=== PATIENT | female | born 1975 | race American Indian/Alaskan Native ===

== ENCOUNTER 2020-08-25 10:06 | Emergency (ER) | payer SELFPAY ==
[2020-08-25] MEDS ORDERED: ACETAMINOPHEN 325 MG TAB PO ONE (10:48)
[2020-08-25] MEDS ORDERED: IBUPROFEN 400 MG TAB PO ONE (10:48)
[2020-08-25] MEDS ORDERED: FAMOTIDINE 20 MG TAB PO ONE (10:48)
--- NOTE | 2020-08-25 10:49 | Emergency Department Report ---
ED Chest Pain HPI - General Chief Complaint: Chest Pain Stated Complaint: DIFFICULTY BREATHING/CHEST PAIN PUI?: No Time Seen by Provider: 08/25/20 10:36 Source: patient, EMS ( EMS documentation not available at time of chart dictation ), RN notes reviewed Mode of arrival: Stretcher Limitations: No Limitations - History of Present Illness Initial Comments: The patient was evaluated in the emergency department for symptoms described in the history of present illness. He/she was evaluated in the context of the global COVID-19 pandemic, which necessitated consideration that the patient might be at risk for infection with the virus that causes COVID-19. Institutional protocols and algorithms that pertain to the evaluation of patients at risk for COVID-19 are in a state of rapid change based on information released by regulatory bodies including the CDC and federal and state organizations. These policies and algorithms were followed during the patient's care in the emergency department. Please note that these policies, procedures and recommendations changed on a rapid basis. Chaperoned by MITCHELL RYAN during the history and physical examination. The patient is a 44-year-old female, who is right-hand dominant, with a reported history of hypothyroidism. Patient does not currently have a local primary care doctor. The patient presents to the ER today with a complaint of chest t ightness, and anxiety. Patient reports anxiety over the past week to 2 weeks. She has intermittent chest pressure and chest tightness, present for the past 7 to 10 days. The tightness is sometimes on the left chest, right chest, middle chest. Sometimes, the tightness moves to her arms. Sometimes it moves to her back. There is no vomiting. There is no diaphoresis. There is no exertional shortness of breath. Patient reports significant stressors, including a family member who recently , and nonspecific psychosocial issues with her daughter. Patient reports shortness of breath which is not exertional, when she "starts to feel anxious." Patient denies aspirin consumption, travel, surgery, oral contraceptive use, immobilization. She states that she is not and has not delivered or given in the past 6 weeks No recent cardiac or stratification. Apparently, her mother had a myocardial infarction in her 50s. Otherwise, there is no personal family history of DVT, pulmonary embolism, or ischemic heart disease. MD Complaint: chest pain -: Gradual, week(s) Onset: during rest Pain Location: substernal, left chest, right chest Pain Radiation: RUE, LUE, back Severity: mild Quality: aching Consistency: intermittent Improves With: rest Worsens With: other (Worsens with feeling anxious) Context: other (Psychosocial stressors) re: dyspnea, other (As per history of present illness) Other Symptoms: other (As per history of present illness) Aspirin use within the Past 7 Days: (0) No - Related Data On Oral Contraceptives: No Previous Rx's Medication Instructions Recorded Last Taken Type Acetaminophen [Non-Aspirin Extra 500 mg PO Q6HR PRN #30 tablet 08/25/20 Unknown Rx Strength] Aspirin [Aspirin BABY CHEW TAB] 81 mg PO QDAY #30 tab.chew 08/25/20 Unknown Rx Famotidine [Pepcid] 20 mg PO BID #60 tablet 08/25/20 Unknown Rx Ibuprofen [Motrin] 600 mg PO Q8H PRN #30 tablet 08/25/20 Unknown Rx Allergies Allergy/AdvReac Type Severity Reaction Status Date / Time codeine Allergy Hives Verified 08/25/20 10:32 Heart Score - HEART Score History: Slightly suspicious EKG: Non-specific Age: < 45 Risk factors: 1-2 risk factors Troponin: < normal limit HEART Score: 2 - Critical Actions Critical Actions: 0-3 pts:0.9-1.7%risk of adverse cardiac event.Candidate for discharge ED Review of Systems ROS: Stated complaint: DIFFICULTY BREATHING/CHEST PAIN Other details as noted in HPI Constitutional: other (Denies loss of taste and loss of smell). denies: fever Eyes: denies: eye discharge ENT: denies: congestion Respiratory: denies: cough Cardiovascular: chest pain Gastrointestinal: denies: abdominal pain, nausea, vomiting, diarrhea Genitourinary: denies: dysuria Musculoskeletal: myalgia. denies: back pain Neurological: denies: weakness Psychiatric: anxiety ED Past Medical Hx - Past Medical History Previous Medical History?: Yes Additional medical history: Graves - Surgical History Past Surgical History?: Yes Additional Surgical History: x 3 - Social History Smoking Status: Current Every Day Smoker Substance Use Type: None - Medications Home Medications: Home Medications Medication Instructions Recorded Confirmed Last Taken Type Acetaminophen [Non-Aspirin Extra 500 mg PO Q6HR PRN #30 tablet 08/25/20 Unknown Rx Strength] Aspirin [Aspirin BABY CHEW TAB] 81 mg PO QDAY #30 tab.chew 08/25/20 Unknown Rx Famotidine [Pepcid] 20 mg PO BID #60 tablet 08/25/20 Unknown Rx Ibuprofen [Motrin] 600 mg PO Q8H PRN #30 tablet 08/25/20 Unknown Rx ED Physical Exam - General Limitations: No Limitations General appearance: alert, in no apparent distress, obese - Head Head exam: Present: atraumatic, normocephalic - Eye Eye exam: Present: normal appearance, EOMI. Absent: nystagmus - ENT ENT exam: Present: normal exam, normal orophraynx, mucous membranes moist, nor mal external ear exam - Neck Neck exam: Present: normal inspection, full ROM. Absent: tenderness, meningismus - Respiratory Respiratory exam: Present: normal lung sounds bilaterally, chest wall tenderness, other (Chaperoned by MITCHELL RYAN). Absent: respiratory distress, wheezes, rales, rhonchi, stridor - Cardiovascular Cardiovascular Exam: Present: regular rate, normal rhythm, normal heart sounds. Absent: bradycardia, tachycardia, irregular rhythm, systolic murmur, diastolic murmur, rubs, gallop - GI/Abdominal GI/Abdominal exam: Present: soft. Absent: distended, tenderness, guarding, rebound, rigid, pulsatile mass - Extremities Exam Extremities exam: Present: normal inspection, full ROM, other (2+ pulses noted in the bilateral upper and lower extremities. There is no palpable cord. negative Homans sign. Muscular compartments are soft. The pelvis is stable.). Absent: pedal edema, calf tenderness - Back Exam Back exam: Present: normal inspection, full ROM. Absent: tenderness, CVA tenderness (R), paraspinal tenderness, vertebral tenderness - Neurological Exam Neurological exam: Present: alert, normal gait, other (No facial droop. Tongue midline. Extraocular movements intact bilaterally. Facial sensation intact to light touch in V1, V2, V3 distribution bilaterally. 5 and a 5 strength in 4 extremities. Sensation intact to light touch in 4 extremities.). Absent: motor sensory deficit - Psychiatric Psychiatric exam: Present: normal affect, normal mood - Skin Skin exam: Present: warm, dry, intact, normal color. Absent: rash ED Course Vital Signs 08/25/20 08/25/20 10:15 10:39 Temperature 98.4 F Pulse Rate 69 Respiratory 18 18 Rate Blood Pressure 144/90 O2 Sat by Pulse 100 100 Oximetry - Reevaluation(s) Reevaluation #1: 08/25/20 13:00 Patient states she feels improved. Objective laboratory testing unremarkable. Vital signs unchanged. Patient watching TV and playing on her cellular phone at this time. X-ray to my interpretation appears to be unremarkable. Patient and I discussed various techniques for anxiety management, and need for outpatient follow-up. KARISSA score - Karissa Score Age > 65: (0) No Aspirin use within the Past 7 Days: (0) No 3 or more CAD Risk Factors: (0) No 2 or more Angina events in past 24 hrs: (0) No Known CAD with more than 50% Stenosis: (0) No Elevated Cardiac Markers: (0) No ST Deviation Greater than 0.5mm: (0) No KARISSA Score: 0 ED Medical Decision Making - Lab Data Result diagrams: 08/25/20 11:12 08/25/20 11:12 Vital Signs 08/25/20 08/25/20 10:15 10:39 Temperature 98.4 F Pulse Rate 69 Respiratory 18 18 Rate Blood Pressure 144/90 O2 Sat by Pulse 100 100 Oximetry Lab Results 08/25/20 08/25/20 08/25/20 Range/Units 11:12 11:12 11:12 WBC 5.8 (4.5-11.0) K/mm3 RBC 4.59 (3.65-5.03) M/mm3 Hgb 12.3 (10.1-14.3) gm/dl Hct 37.7 (30.3-42.9) % MCV 82 (79-97) fl MCH 27 L (28-32) pg MCHC 33 (30-34) % RDW 15.0 (13.2-15.2) % Plt Count 311 (140-440) K/mm3 Troponin T < 0.010 (0.00-0.029) ng/mL HCG, Quant < 2 (0-4) mIU/mL Lab Results 08/25/20 08/25/20 08/25/20 Range/Units 11:12 11:12 11:12 WBC 5.8 (4.5-11.0) K/mm3 RBC 4.59 (3.65-5.03) M/mm3 Hgb 12.3 (10.1-14.3) gm/dl Hct 37.7 (30.3-42.9) % MCV 82 (79-97) fl MCH 27 L (28-32) pg MCHC 33 (30-34) % RDW 15.0 (13.2-15.2) % Plt Count 311 (140-440) K/mm3 Sodium 136 L (137-145) mmol/L Potassium 4.2 (3.6-5.0) mmol/L Chloride 103.9 (98-107) mmol/L Carbon Dioxide 25 (22-30) mmol/L Anion Gap 11 mmol/L BUN 6 L (7-17) mg/dL Creatinine 0.6 (0.6-1.2) mg/dL Estimated GFR > 60 ml/min BUN/Creatinine Ratio 10 % Glucose 90 (65-100) mg/dL Calcium 9.2 (8.4-10.2) mg/dL Magnesium 1.80 (1.7-2.3) mg/dL Total Creatine Kinase 44 (30-135) units/L Troponin T < 0.010 (0.00-0.029) ng/mL HCG, Quant (0-4) mIU/mL 08/25/20 Range/Units 11:12 WBC (4.5-11.0) K/mm3 RBC (3.65-5.03) M/mm3 Hgb (10.1-14.3) gm/dl Hct (30.3-42.9) % MCV (79-97) fl MCH (28-32) pg MCHC (30-34) % RDW (13.2-15.2) % Plt Count (140-440) K/mm3 Sodium (137-145) mmol/L Potassium (3.6-5.0) mmol/L Chloride (98-107) mmol/L Carbon Dioxide (22-30) mmol/L Anion Gap mmol/L BUN (7-17) mg/dL Creatinine (0.6-1.2) mg/dL Estimated GFR ml/min BUN/Creatinine Ratio % Glucose (65-100) mg/dL Calcium (8.4-10.2) mg/dL Magnesium (1.7-2.3) mg/dL Total Creatine Kinase (30-135) units/L Troponin T (0.00-0.029) ng/mL HCG, Quant < 2 (0-4) mIU/mL - EKG Data -: EKG Interpreted by Me EKG shows normal: sinus rhythm Rate: normal - EKG Data When compared to previous EKG there are: previous EKG unavailable 08/25/20 10:57 No prior EKG available for comparison. Sinus rhythm. 67 bpm. First-degree AV block, [place] interval 203 ms. Premature atrial complex. Not a STEMI. No prior for comparison - Radiology Data Radiology results: pending, image reviewed interpreted by me: 1 view x-ray of the chest, interpreted by myself, negative for acute findings. No obvious infiltrate, pneumothorax, pleural effusion. Cardiac silhouette unremarkable. - Medical Decision Making Differential diagnosis, including but not limited to: GERD, gastritis, hiatal hernia, pneumonia, coronary artery disease, costochondritis, anxiety, conversion reaction, history of thyroid derangement Assessment and plan: 44-year-old female, who is not currently tachycardic, tachypneic or hypoxic, who denies DVT and pulmonary embolism risk factors, who is low risk by Wells criteria for pulmonary embolism, PERC negative EKG unchanged unremarkable, troponin negative x 1, symptoms present for a few weeks, as per the [employer] clinical policy, acute myocardial infarction may be ruled out with 1 set of troponin/cardiac enzymes. Patient has equal pulses in the upper and lower extremities, no pulsatile abdominal mass, and an unremarkable x-ray of the chest, therefore, aortic disease is very unlikely. Patient at low risk for major adverse cardiac event as per heart score. Given reproducibility, history and physical, do not have a high suspicion for GERD, gastritis, hiatal hernia at this time. Pneumonia is unlikely given history, physical, and x-ray findings. I find coronary artery disease of significance to be unlikely. As per this institutions policy, procedure, protocol, patient's information is transmitted to [facility] heart cardiology, whereby patient should be contacted within the next 2 days to arrange close outpatient follow-up We will also check a TSH. However, patient has not been on thyroid medication for about a year, and she does not appear to be symptomatically hyper or hypothyroid. She will therefore need to follow-up with an outpatient primary care doctor or mate fishing vessel. Critical care attestation.: If time is entered above; I have spent that time in minutes in the direct care o f this critically ill patient, excluding procedure time. ED Disposition Clinical Impression: Chest wall pain Disposition: DC-01 TO HOME OR SELFCARE Is pt being admited?: No Does the pt Need Aspirin: No Condition: Stable Instructions: Nonspecific Chest Pain, Adult, Chest Wall Pain, Chest Pain (ED) Additional Instructions: Patient may take the prescribed medications as needed and directed. Take an aspirin on a daily basis. Follow-up with your primary care doctor within the next month. Follow-up with a assisted living administrator within the next 3 to 4 days. Please return to the emergency room right away with new pain, worsening pain, migration of pain, projectile vomiting, change in mental status, confusion, inability to tolerate liquid feeds, new, worsening or different symptoms not present on the initial emergency room evaluation. \\ X-ray of the chest was interpreted by the emergency physician as being negative for acute/significant findings. However, a formal radiology interpretation will be rendered within the next 24 hours. Occasionally, final interpretations differ from initial interpretations. Therefore, please have a primary care doctor or assisted living administrator contact the medical records department to follow-up on final radiology read, and assess for any discrepancies, which infrequently occ ur. Prescriptions: Aspirin [Aspirin BABY CHEW TAB] 81 mg PO QDAY #30 tab.chew Ibuprofen [Motrin] 600 mg PO Q8H PRN #30 tablet PRN Reason: Pain Acetaminophen [Non-Aspirin Extra Strength] 500 mg PO Q6HR PRN #30 tablet PRN Reason: Pain , Severe (7-10) Famotidine [Pepcid] 20 mg PO BID #60 tablet Referrals: SCOTTIE RIVAS MD [Staff Physician] - 3-5 Days [facility] [Provider Group] - 3-5 Days
[2020-08-25 12:07] LABS: Hematocrit 37.7 % (30.3-42.9); Hemoglobin 12.3 gm/dl (10.1-14.3); Mean Corpuscular HGB Conc 33 % (30-34); Mean Corpuscular Volume 82 fl (79-97); Platelet Count 311 K/mm3 (140-440); Red Blood Count 4.59 M/mm3 (3.65-5.03)
[2020-08-25 12:22] LABS: Blood Urea Nitrogen 6 mg/dL (7-17); Calcium 9.2 mg/dL (8.4-10.2); Hemolysis Index 0
[2020-08-25 12:23] LABS: BUN/Creatinine Ratio 10
--- NOTE | 2020-08-25 12:58 | XRay Report ---
CHEST 1 VIEW 08/25/2020 11:52 AM INDICATION / CLINICAL INFORMATION: acute chest pain. COMPARISON: None available. FINDINGS: SUPPORT DEVICES: None. HEART / MEDIASTINUM: No significant abnormality. LUNGS / PLEURA: No significant pulmonary or pleural abnormality. No pneumothorax. ADDITIONAL FINDINGS: No significant additional findings. IMPRESSION: No acute cardiopulmonary abnormality. Signer Name: Jann Mcdonald MD Signed: 08/25/2020 12:54 PM Workstation Name: [id number]
[2020-08-25 13:54] VITALS: BP 132/73
== END 2020-08-25 14:00 | disposition home or self-care (01) ==
LOC: ED 10:06
DX: R07.89 Other chest pain (principal); F17.200 Nicotine dependence, unspecified, uncomplicated; Z79.899 Other long term (current) drug therapy; Z88.6 Allergy status to analgesic agent
CPT/HCPCS: 36415; 71045; 80048; 82550; 83735; 84443; 84484; 84702; 85027; 93005